=== PATIENT | female | born 1945 | race Caucasian/White ===

== ENCOUNTER → 2018-09-28 | Outpatient (CLI) | payer MEDICARE ==
[~2018-09-28] MED LIST: ACCUPRIL5 MG PO; CIPRO250 MG PO; COREG3.125 MG PO; GLUCOTROL5 M1 PO; GLUMETZA500 MG PO; GLYBURIDE5 MG PO; HYDRODIURIL25 MG PO; INSULIN PEN; MACROBID100 M1 PO; PREVACID SOLUTA30 MG PO; PRILOSEC20 MG PO; TENORMIN25 M1 PO; ULTRAM50 MG PO
== END ==
LOC: ORTHO 02:05
DX: M17.11 Unilateral primary osteoarthritis, right knee (principal); M85.88 Other specified disorders of bone density and structure, other site

== ENCOUNTER 2018-12-12 11:33 | Emergency (ER) | payer MEDICARE ==
[~2018-12-12] VITALS: Ht 157.4 cm; Wt 104.3 kg
[2018-12-12 12:23] LABS: BILIRUBIN NEGATIVE (NEGATIVE); BLOOD 1+ (NEGATIVE); CLARITY CLEAR (CLEAR); COLOR YELLOW (YELLOW); GLUCOSE NEGATIVE (NEGATIVE); KETONE NEGATIVE (NEGATIVE); LEUKO ESTERASE TRACE (NEGATIVE); NITRITE POSITIVE (NEGATIVE); UROBILINOGEN 0.2 E.U./dl (0.2-1.0)
[2018-12-12 12:48] LABS: BACTERIA 2+; WBC 31-40 wbc/hpf (0-5)
[2018-12-12] MEDS ORDERED: MACROBID100 M1 PO (13:12)
[2018-12-12] MEDS ORDERED: PYRIDIUM200 M1 PO (13:12)
== END 2018-12-12 13:32 | disposition home or self-care (01) ==
LOC: ED 11:33
PROVIDERS: Nurse Practitioner Family
DX: N39.0 Urinary tract infection, site not specified (principal); Z88.0 Allergy status to penicillin; Z88.8 Allergy status to other drugs, medicaments and biological substances; Z79.899 Other long term (current) drug therapy

== ENCOUNTER → 2019-01-10 | Outpatient (CLI) | payer MEDICARE ==
[~2019-01-10] MED LIST changes: +LANTUS SOL100 UNIT/1 SQ; +LASIX40 MG PO; +METOPROLOL25 MG PO; +MOBIC7.5 MG PO; +NEURONTIN300 MG PO; +OMEPRAZOLE40 MG PO; +PYRIDIUM200 M1 PO; +VITAMIN E400 UNI1 PO
== END | disposition home or self-care (01) ==
LOC: LAB 15:36
PROVIDERS: Internal Medicine
DX: S80.861A Insect bite (nonvenomous), right lower leg, initial encounter (principal); W57.XXXA Bitten or stung by nonvenomous insect and other nonvenomous arthropods, initial encounter; Y93.89 Activity, other specified; Y92.89 Other specified places as the place of occurrence of the external cause; Y99.8 Other external cause status

== ENCOUNTER 2019-06-03 13:34 | Inpatient (IN) | payer MEDICARE ==
[~2019-06-03] VITALS: Ht 154.9 cm; Wt 115.9 kg
--- NOTE | ~2019-06-03 | CON ---
[place], [place] REPORT OF CONSULTATION NAME: BERYL SANTOS UNIT #: [id number] ROOM: 505 DOCTOR: TABATHA INMAN MD BIRTHDATE: [birth year] DOS: 06/04/2019 REASON FOR CONSULTATION: Chest tightness and diabetes. HISTORY OF PRESENT ILLNESS: The patient is a 73-year-old lady admitted with complaining of shortness of breath. The patient states that she took her granddaughter to school and was on her way home and she is walking few steps and sudden have substernal chest heaviness and shortness of breath. The patient was referred for a stress test by Dr. Oconnor. No history of previous cardiac issues. PAST MEDICAL HISTORY: Significant for hypertension. HOME MEDICATIONS: Furosemide, gabapentin, metoprolol, insulin. She used to be on Pyridium and nitrofurantoin, which she does not take any more. ALLERGIES: None. SOCIAL HISTORY: Denies any alcohol or tobacco abuse. REVIEW OF SYSTEMS: CONSTITUTIONAL: No fever, no chills. HEAD, EYES, EARS, NOSE, AND THROAT: No visual disturbances. CARDIOVASCULAR SYSTEM: No chest pain, but chest heaviness. GASTROINTESTINAL: No nausea, no vomiting. RESPIRATORY SYSTEM: Shortness of breath. PHYSICAL EXAMINATION: VITAL SIGNS: Her blood pressure is 130/70, patient is in sinus rhythm. NECK: Supple, no JVD. LUNGS: Clear. HEART: Sounds are regular. ABDOMEN: Soft, nontender. NEUROLOGICAL: Stable. LABORATORY AND DIAGNOSTIC DATA: Sodium 138, potassium 4.8, creatinine is 1.4. Hemoglobin and hematocrit within normal limits. Chest x-ray showed no CHF, 8 mm nodular density lung base. CT scan showed no acute process, some right breast calcification. EKG sinus with nonspecific ST-T changes. Cardiac enzymes are all negative. IMPRESSION: The patient with diabetes and hypertension with a sudden onset of shortness of breath. The patient has been scheduled for a Lexiscan Cardiolite stress test, which we will do and proceed. Further management will depend upon the stress finding meantime, continue the beta blockers and a baby aspirin. [place], [place] REPORT OF CONSULTATION NAME: BERYL SANTOS UNIT #: [id number] ROOM: 505 DOCTOR: MAGGE TABATHA DHILLON BIRTHDATE: [birth year] TABATHA INMAN MD CM:CONSTR:REPORT OF CONSULTATION 7 06/11/19 0821 interface
--- NOTE | ~2019-06-03 | EKG ---
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
--- NOTE | ~2019-06-03 | EKG ---
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
--- NOTE | ~2019-06-03 | ST ---
[place], [place] EXERCISE STRESS TEST REPORT NAME: BERYL SANTOS UNIT #: [id number] ROOM: 505 DOCTOR: TABATHA INMAN MD BIRTHDATE: [birth year] DOS: 06/04/2019 LEXISCAN PORTION OF THE LEXISCAN CARDIOLITE Baseline cardiogram, sinus with Lexiscan, no new EKG changes. No chest pain. Blood pressure and heart rate response was normal. Nuclear images will be reported separately. TABATHA INMAN MD CM:STRESS:EXERCISE STRESS TEST REPORT [id number] TABATHA INMAN MD
--- NOTE | ~2019-06-03 | EKG ---
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
--- NOTE | ~2019-06-03 | WRIGHTHP ---
[place], [place] PATIENT HISTORY AND PHYSICAL EXAM [id number] UNIT #: [id number] ROOM: 505 DOCTOR: JAY DELCID MD BIRTHDATE: [birth year] DOS: 06/04/2019 HISTORY OF PRESENT ILLNESS: This patient is very well known to us. She said she went to drop her granddaughter off her band, came back home, was climbing the steps when developed acute onset of shortness of breath. She denies having any chest pains or palpitations, does not have any fever or chills, does not have any cough. She has noticed increasing leg edema and blamed the humidity for it. PAST MEDICAL HISTORY: Significant for: 1. Type 2 diabetes mellitus. 2. Primary osteoarthritis, knee joints. 3. Chronic kidney disease. 4. Peripheral neuropathy. 5. Benign hypertension. MEDICATIONS: Lasix 40, gabapentin 300, meloxicam 7.5, metoprolol 25, omeprazole 40, Lantus 60 units and vitamin E 400 units. All daily medications. SOCIAL HISTORY: Nonsmoker and does not use any alcohol. Lives at home with her . PHYSICAL EXAMINATION: GENERAL: She is awake and alert and oriented, in no distress this morning. VITAL SIGNS: Blood pressure is 131/60, pulse of 65, respirations 18, temperature 98.6. LUNGS: Clear. HEART: Regular. ABDOMEN: Obese, soft, and nontender. EXTREMITIES: Trace edema bilaterally. LABORATORY DATA: Three sets of troponins have come back negative. CT of the chest shows hiatal hernia. No pleural effusion, pleural thickening, a possibility of a mass in the right breast. ASSESSMENT AND PLAN: 1. The patient with exertional shortness of breath with no risk factors, ruled out for myocardial infarction. Awaiting stress result. Cardiology consultation was obtained. 2. Type 2 diabetes mellitus, insulin-dependent, controlled. 3. Chronic kidney disease, possibly from underlying diabetes. The patient should avoid nephrotoxic medications including meloxicam. 4. Breast lesion. Ultrasound of the breast was ordered and it is pending. We will do a mammogram as an outpatient. [place], [place] PATIENT HISTORY AND PHYSICAL EXAM [facility]: [id number] UNIT #: [id number] ROOM: 505 DOCTOR: JAY DELCID MD BIRTHDATE: [birth year] JAY DELCID MD CM:HISPHYS:PATIENT HISTORY AND PHYSICAL EXAMINATION 4 4 JAY DELCID MD 06/04/1914 interface
[~2019-06-03 13:34] MED LIST changes: -LANTUS SOL100 UNIT/1 SQ; -LASIX40 MG PO; -METOPROLOL25 MG PO; -MOBIC7.5 MG PO; -NEURONTIN300 MG PO; -OMEPRAZOLE40 MG PO; -VITAMIN E400 UNI1 PO
[2019-06-03 13:42] VITALS: BP 173/74
[2019-06-03 14:00] LABS: BASO % 0.4 % (0.0-1.0); EOS # 0.1 10*3/uL (0.0-0.4); EOS % 1.8 % (1.0-4.0); HEMATOCRIT 35.2 % (37.0-47.0); HEMOGLOBIN 11.2 g/dl (12.0-16.0); LYMPH # 1.5 10*3/uL (1.3-4.4); LYMPH % 21.6 % (27.0-41.0); MEAN CELL VOLUME 96.7 fl (81.0-99.0); MEAN CORPUSCULAR HGB 30.8 pg (27.0-31.0); MEAN CORPUSCULAR HGB CONC 31.8 g/dl (33.0-37.0); MONO # 0.5 10*3/uL (0.1-1.0); MONO % 7.6 % (3.0-9.0); NEUT # 4.6 10*3/uL (2.3-7.9); PLATELET COUNT AUTOMATED 206 10*3/uL (130-400); RED BLOOD COUNT 3.64 10*6/uL (4.10-5.10); RED CELL DISTRI WIDTH 13.5 % (0-14.5); WHITE BLOOD COUNT 6.8 10*3/uL (4.8-10.8)
[2019-06-03 14:12] VITALS: BP 165/60
[2019-06-03 14:13] LABS: ACT PARTIAL THROMBO TIME 23.3 SECONDS (20.0-32.1); INTERNATIONAL NORM RATIO 0.9 (2.0-3.5)
[2019-06-03 14:22] LABS: ALBUMIN 3.5 gm/dl (3.1-4.5); ALKALINE PHOSPHATASE 96 U/L (45-117); BUN 24 mg/dl (7-24); CHLORIDE 105 mmol/L (98-107); CREATININE 1.45 mg/dL (0.55-1.02); POTASSIUM 4.7 mmol/L (3.5-5.1); SGOT/AST 18 IU/L (3-35); SGPT/ALT 21 U/L (12-78); SODIUM 138 mmol/L (136-145); TOTAL PROTEIN 7.4 gm/dL (6.4-8.2)
[2019-06-03 14:32] LABS: TROPONIN I < 0.015 ng/ml (<0.045)
[2019-06-03 14:37] LABS: BILIRUBIN NEGATIVE (NEGATIVE); BLOOD NEGATIVE (NEGATIVE); CLARITY CLEAR (CLEAR); COLOR YELLOW (YELLOW); GLUCOSE NEGATIVE (NEGATIVE); KETONE NEGATIVE (NEGATIVE); LEUKO ESTERASE NEGATIVE (NEGATIVE); NITRITE NEGATIVE (NEGATIVE); PH 6.5 (5.0-9.0); UROBILINOGEN 0.2 E.U./dl (0.2-1.0)
[2019-06-03 14:45] LABS: BACTERIA TRACE
[2019-06-03 15:49] VITALS: BP 162/48
[2019-06-03 17:07] VITALS: BP 150/58
[2019-06-03 17:20] VITALS: BP 172/63
[2019-06-03] MEDS ORDERED: NEURONTIN300 MG PO (18:02)
[2019-06-03] MEDS ORDERED: LASIX40 MG PO (18:02)
[2019-06-03] MEDS ORDERED: OMEPRAZOLE40 MG PO (18:02)
[2019-06-03] MEDS ORDERED: MOBIC7.5 MG PO (18:02)
[2019-06-03] MEDS ORDERED: METOPROLOL25 MG PO (18:03)
[2019-06-03] MEDS ORDERED: LANTUS SOL100 UNIT/1 SQ (18:03)
[2019-06-03] MEDS ORDERED: VITAMIN E400 UNI1 PO (18:05)
[2019-06-03 20:00] VITALS: BP 111/62; BP 133/97
[2019-06-04] VITALS: BP 131/60
[2019-06-04 06:19] LABS: BASO % 0.2 % (0.0-1.0); EOS # 0.1 10*3/uL (0.0-0.4); EOS % 1.1 % (1.0-4.0); HEMATOCRIT 34.3 % (37.0-47.0); HEMOGLOBIN 10.8 g/dl (12.0-16.0); LYMPH # 1.7 10*3/uL (1.3-4.4); LYMPH % 19.4 % (27.0-41.0); MEAN CELL VOLUME 96.1 fl (81.0-99.0); MEAN CORPUSCULAR HGB 30.3 pg (27.0-31.0); MEAN CORPUSCULAR HGB CONC 31.5 g/dl (33.0-37.0); MONO # 0.8 10*3/uL (0.1-1.0); MONO % 8.6 % (3.0-9.0); NEUT # 6.2 10*3/uL (2.3-7.9); NEUT % 70.5 % (47.0-73.0); PLATELET COUNT AUTOMATED 215 10*3/uL (130-400); RED BLOOD COUNT 3.57 10*6/uL (4.10-5.10); RED CELL DISTRI WIDTH 13.6 % (0-14.5); WHITE BLOOD COUNT 8.8 10*3/uL (4.8-10.8)
[2019-06-04 06:56] LABS: POTASSIUM 3.9 mmol/L (3.5-5.1)
[2019-06-04 06:59] LABS: CREATININE 1.26 mg/dL (0.55-1.02)
[2019-06-04] MEDS ORDERED: METOPROLOL25 MG PO (09:05)
[2019-06-04 09:10] VITALS: BP 164/78
[2019-06-04 12:00] VITALS: BP 142/68
== END 2019-06-04 16:05 | disposition home or self-care (01) | DRG 313 ==
LOC: ED 13:34 → 5E 16:30 → EDHOLD 16:30 → 5E 16:57
PROVIDERS: Family Medicine; Nurse Practitioner Family; ADMIT Internal Medicine
PROC: 3E073KZ Introduction of Other Diagnostic Substance into Coronary Artery, Percutaneous Approach (ICD-10-PCS; principal; 2019-06-04)
PROC: 4A02XM4 Measurement of Cardiac Total Activity, External Approach (ICD-10-PCS; principal; 2019-06-04)
DX: R07.89 Other chest pain (principal); R06.02 Shortness of breath; E78.5 Hyperlipidemia, unspecified; M17.0 Bilateral primary osteoarthritis of knee; I12.9 Hypertensive chronic kidney disease with stage 1 through stage 4 chronic kidney disease, or unspecified chronic kidney disease; N18.9 Chronic kidney disease, unspecified; E11.42 Type 2 diabetes mellitus with diabetic polyneuropathy; E11.22 Type 2 diabetes mellitus with diabetic chronic kidney disease; N64.89 Other specified disorders of breast; Z88.0 Allergy status to penicillin; Z88.8 Allergy status to other drugs, medicaments and biological substances; Z90.710 Acquired absence of both cervix and uterus

== ENCOUNTER → 2019-08-02 | Outpatient (CLI) | payer MEDICARE ==
[~2019-08-02] MED LIST changes: +LANTUS SOL100 UNIT/1 SQ; +LASIX40 MG PO; +METOPROLOL25 MG PO; +MOBIC7.5 MG PO; +NEURONTIN300 MG PO; +OMEPRAZOLE40 MG PO; +VITAMIN E400 UNI1 PO
== END | disposition home or self-care (01) ==
LOC: LAB 09:13
DX: E11.9 Type 2 diabetes mellitus without complications (principal)

== ENCOUNTER → 2021-06-29 | Outpatient (CLI) | payer MEDICARE | END | disposition home or self-care (01) | LOC: CARD 00:19 | PROVIDERS: ATTEND Internal Medicine | DX: I51.7 Cardiomegaly (principal); R06.02 Shortness of breath ==

== ENCOUNTER 2021-09-11 12:35 | Emergency (ER) | payer MEDICARE ==
[~2021-09-11] VITALS: Wt 104.3 kg
[2021-09-11 13:12] LABS: HEMATOCRIT 33.6 % (37.0-47.0); LYMPH # 0.4 10*3/uL (1.3-4.4); LYMPH % 11.5 % (27.0-41.0); MEAN CELL VOLUME 97.1 fl (81.0-99.0); MEAN CORPUSCULAR HGB 30.3 pg (27.0-31.0); MEAN CORPUSCULAR HGB CONC 31.3 g/dl (33.0-37.0); MONO # 0.5 10*3/uL (0.1-1.0); MONO % 13.5 % (3.0-9.0); NEUT # 2.6 10*3/uL (2.3-7.9); NEUT % 74.4 % (47.0-73.0); PLATELET COUNT AUTOMATED 154 10*3/uL (130-400); RED BLOOD COUNT 3.46 10*6/uL (4.10-5.10); RED CELL DISTRI WIDTH 13.6 % (0-14.5); WHITE BLOOD COUNT 3.5 10*3/uL (4.8-10.8)
[2021-09-11 13:22] LABS: CREATININE 1.33 mg/dL (0.55-1.02)
[2021-09-13] MEDS ORDERED: JANUVIA50 MG PO (15:44)
[2021-09-13] MEDS ORDERED: METOPROLOL TART50 M1 PO (15:44)
[2021-09-13] MEDS ORDERED: LOVASTATIN20 MG PO (15:45)
[2021-09-13] MEDS ORDERED: QUINAPRIL40 MG PO (15:45)
[2021-09-13] MEDS ORDERED: OMEPRAZOLE40 MG PO (15:46)
[2021-09-13] MEDS ORDERED: AMARYL4 MG PO (15:46)
== END 2021-09-11 15:00 | disposition home or self-care (01) ==
LOC: ED 12:35
PROVIDERS: Nurse Practitioner Family
DX: U07.1 COVID-19 (principal); Z88.0 Allergy status to penicillin; Z88.8 Allergy status to other drugs, medicaments and biological substances; Z79.899 Other long term (current) drug therapy